=== PATIENT | male | born 2000 | race Caucasian/White ===

== ENCOUNTER 2020-06-25 05:59 | Observation (INO) | payer OTHER, SELFPAY ==
[2020-06-25] VITALS (23 sets, daily range): BP systolic 103–137; BP diastolic 56–109; PULSE 58–91; RESP 11–20; TEMP 36.3–37.3; O2SAT 92–100; BMI 23.0
--- NOTE | 2020-06-25 | PATH_ITS ---
[facility] Accession Number: [id number] . 01 Material submitted: . appendix - APPENDIX . 01 Clinical history: . PAIN RIGHT SIDE ABDOMEN . 02 Diagnosis: Appendix, Appendectomy: Acute suppurative appendicitis with serositis. Negative for dysplasia and malignancy. [facility] 06/29/2020 1248 Local . 02 Electronically signed: . Amrita Arnold MD, Pathologist NPI- [id number] . 01 Gross description: . Received in formalin, labeled appendix, and consists of a 6.0 cm in length by 1.2 cm in diameter vermiform appendix with attached mcmanus-yellow lobulated mesoappendix measuring 5.0 x 2.0 x 1.0 cm in aggregate. The serosa is mcmanus-pink to pink-purple and smooth to ragged with adherent mcmanus-green purulent exudate. Sectioning reveals a mcmanus-pink, focally hemorrhagic mucosa and a lumen measuring 0.6 cm in diameter. Perforation sites are identified within the tips. Credentialing Specialist sections are submitted, to include the en face margin (blue), central cross-sections and bisected tip in cassettes A1-A2. ([id number]) /MRV 06/28/2020 1052 Local . 02 Pathologist provided ICD-10: K35.30 . 02 CPT . 439406 Performed at: 01 [facility] [address], [place], [place] [id number] MD Deepak Gore MD Phone: [phone] Performed at: 02 [facility] [address] [place], [place] [id number] MD Amrita Arnold MD Phone: [phone]
[2020-06-25] MEDS: ONDANSETRON 4 MG/2 ML INJ IV ×3 (06:26→13:23)
[2020-06-25] MEDS: SODIUM CHLORIDE 0.9% 1,000 ML 150 ML IV (06:26)
--- NOTE | 2020-06-25 06:31 | ED_ITS ---
HPI - Abdominal Pain General Chief Complaint: Abdominal Pain Stated Complaint: pain right side abdomen Time Seen by Provider: 06/25/20 06:00 Source: patient Mode of arrival: Ambulatory Limitations: no limitations History of Present Illness HPI narrative: 19-year-old male nonsmoker with noncontributory medical history presents with his mother and a chief complaint of gradually worsening abdominal pain over the course of the day. It is largely in the right lower quadrant and seems to be worse with motion and improves with rest. He has got a decreased appetite and had 1 large episode of emesis. He denies any runny nose, sore throat or cough. He denies any dysuria, frequency or urgency. MD complaint: abdominal pain Onset (ago): hour(s) Pain Consistency: constant Location: RLQ Severity: moderate Quality: cramping and aching Radiation: none Relieving factors: rest Exacerbating factors: movement Associated symptoms: nausea and vomiting Related Data Home Medications Medication Instructions Recorded Confirmed multivitamin 1 cap PO DAILY 08/18/19 04/06/20 Previous Rx's Medication Instructions Recorded escitalopram oxalate 10 mg tablet 10 mg PO DAILY #30 tab 04/06/20 Allergies Allergy/AdvReac Type Severity Reaction Status Date / Time amoxicillin [AMOXICILLIN] Allergy Intermediate RASH Verified 04/06/20 11:02 Sulfa (Sulfonamide Allergy Intermediate ?RASH Verified 04/06/20 11:02 Antibiotics) [SULFA (SULFONAMIDE ANTIBIOTICS)] Review of Systems Constitutional Constitutional: Denies chills, Denies fatigue, Denies fever(s), Denies frequent falls, Denies lethargy and Denies weakness Eyes Eyes: Denies change in vision, Denies eye discharge, Denies irritation and Denies loss of vision ENT Ears, Nose, Mouth, and Throat: Denies change in voice, Denies dizziness, Denies neck pain, Denies sore throat and Denies throat swelling Cardiovascular Cardiovascular: Denies chest pain, Denies irregular heart rhythm, Denies lightheadedness, Denies palpitations, Denies dyspnea, Denies dyspnea on exertion and Denies orthopnea Respiratory Respiratory: Denies cough, Denies dyspnea, Denies dyspnea on exertion and Denies wheezing Gastrointestinal Gastrointestinal: Reports abdominal pain, Denies change in bowel habits, Denies diarrhea, Reports nausea and Reports vomiting Musculoskeletal Musculoskeletal: Denies neck pain and Denies numbness Integumentary/Breasts Skin/Breast: Denies pruritus, Denies erythema, Denies rash and Denies wounds Neurologic Neurologic: Denies behavioral changes, Denies confusion, Denies dizziness, Denies frequent falls, Denies loss of vision, Denies numbness and Denies weakness Psychiatric Psychiatric: Denies anxiety, Denies behavioral changes, Denies confusion, Denies depression, Denies homicidal ideation and Denies suicidal ideation Endocrine Endocrine: Denies fatigue, Denies flushing and Denies palpitations Hematologic/Lymphatic Hematologic/Lymphatic: Denies easy bruising Allergic/Immunologic Allergic/Immunologic: Denies urticaria, Denies throat swelling and Denies wheezing Patient History Social History Smoking Status: Never smoker Smoking Status: Never smoker alcohol intake frequency: a few times a month Substance Use Type: marijuana Exam Narrative Exam Narrative: GENERAL: [19] year old patient appears stated age. Well-no urished, well-developed patient, in mild distress. HEAD: Atraumatic. Normocephalic. EYES: Pupils equal round and reactive. Extraocular motions intact. No scleral icterus. No injection or drainage. ENT: Nose without bleeding, purulent drainage. Throat without erythema, tonsillar hypertrophy or exudate. Airway patent. NECK: Trachea midline. Non tender CARDIOVASCULAR: Regular rate and rhythm without murmurs, gallops, or rubs. RESPIRATORY: Clear to auscultation. Breath sounds equal bilaterally. No wheezes, rales, or rhonchi. GASTROINTESTINAL: Abdomen soft, tender to palpation with no significant rebound, nondistended. Bowel sound present EXTREMITIES: No edema or joint tenderness. BACK: Nontender without deformity or crepitance. No flank tenderness. NEURO: AOx3. SKIN: No rash or erythema of visible areas Initial Vital Signs Initial Vital Signs: Vital Signs Temperature 99.2 F 06/25/20 06:10 Pulse Rate 84 06/25/20 06:10 Respiratory Rate 18 06/25/20 06:10 Blood Pressure 129/80 06/25/20 06:10 Pulse Oximetry 98 06/25/20 06:10 Course Orders Ordered: ED Orders 06/25/20 06:25 Complete Blood Count AUTO DIFF Stat Comprehensive Metabolic Panel Stat Lipase Stat 06/25/20 06:43 CT abdomen pelvis w con Stat 06/25/20 07:20 COVID19 Stat Sodium Chloride (Normal Saline 0.9%) 1,000 mls @ 150 mls/hr IV CONT EDUAR Last Admin: 06/25/20 06:26 Dose: 150 mls/hr Documented by: JENNIFER Levofloxacin (Levaquin) 500 mg in 100 mls @ 100 mls/hr IV NOW ONE Stop: 06/25/20 08:31 Metronidazole (Flagyl) 500 mg in 100 mls @ 100 mls/hr IV NOW ONE Stop: 06/25/20 08:31 Discontinued Medications Ondansetron HCl (Ondansetron 4 Mg/2 Ml Inj) 4 mg IV NOW ONE Stop: 06/25/20 06:19 Last Admin: 06/25/20 06:26 Dose: 4 mg Documented by: JENNIFER Consultations Consultation #1: discussed with general surgery, (Dr. Hernandez) who is happy to accept. Patient to be kept NPO, fluids, ABX, pain meds, antiemetics. Vital Signs Vital signs: Vital Signs - 8 hr 06/25/20 06:10 Temperature 99.2 F Pulse Rate 84 Respiratory Rate 18 Blood Pressure 129/80 Pulse Oximetry 98 MDM - Abdominal Pain Lab Data Result diagrams: 06/25/20 06:25 06/25/20 06:25 Labs: Lab Results 06/25/20 06/25/20 Range/Units 06:25 06:25 WBC 12.8 H (4.5-11.0) X10^3/uL RBC 5.02 (4.5-5.9) X10^6/uL Hgb 14.4 (13.5-17.5) g/dL Hct 42.2 (41-53) % MCV 84.1 (80-100) fL MCH 28.7 (26-34) PG MCHC 34.2 (30-36) % RDW 12.9 (11.6-14.8) % Plt Count 188 (150-400) X10^3/uL Neut % (Auto) 79.5 H (50-75) % Lymph % (Auto) 13.1 L (25-40) % Phillips % (Auto) 6.3 (3-14) % Eos % (Auto) 0.6 L (2-4) % Baso % (Auto) 0.5 (0-2) % Neut # (Auto) 80862 H (3878-3861) /uL Lymph # (Auto) 1700 (3293-3282) /uL Phillips # (Auto) 800 (0-900) /uL Eos # (Auto) 100 (0-450) /uL Baso # (Auto) 100 (0-100) /uL Sodium 135 L (137-145) mmol/L Potassium 3.6 (3.4-5.1) mmol/L Chloride 101 (98-107) mmol/L Carbon Dioxide 28 (22-32) mmol/L BUN 17 (9-20) mg/dL Creatinine 0.80 (0.66-1.25) mg/dL Estimated GFR > 60.0 (>60) mL/min BUN/Creatinine Ratio 21.3 (6-22) Glucose 109 H (70-100) mg/dL Calcium 9.2 (8.4-10.2) mg/dL Total Bilirubin 0.8 (0.2-1.3) mg/dL AST 31 (17-59) IU/L ALT 21 (<50) IU/L Alkaline Phosphatase 49 (38-126) U/L Total Protein 7.6 (6.3-8.2) g/dL Albumin 4.5 (3.5-5.0) g/dL Globulin 3.1 (1.7-4.1) g/dL Albumin/Globulin Ratio 1.5 (1.0-2.8) Lipase 60 (23-300) U/L Imaging Data CT scan - abdomen/pelvis: Radiologist's Impression: Acute appendicitis without evidence of perf oration or abscess. There is an appendicolith noted Discharge Plan Departure Patient Disposition: Admitted as Observation Clinical Impression: Acute appendicitis Qualifiers: Acute appendicitis type: with localized peritonitis Appendicitis gangrene pres ence: without gangrene Appendicitis perforation presence: without perforation Appendicitis abscess presence: without abscess Qualified Code(s): K35.30 - Acute appendicitis with localized peritonitis, without perforation or gangrene
[2020-06-25 06:34] LABS: Add Manual Diff / Slide Review NO; Basophils Absolute Auto 100 /uL (0-100); Basophils Percent Auto 0.5 % (0-2); Eosinophils Absolute Auto 100 /uL (0-450); Eosinophils Percent Auto 0.6 % (2-4); Hematocrit 42.2 % (41-53); Hemoglobin 14.4 g/dL (13.5-17.5); Lymphocytes Absolute Auto 1700 /uL (1100-4500); Lymphocytes Percent Auto 13.1 % (25-40); Mean Corpuscular HGB Conc 34.2 % (30-36); Mean Corpuscular Hemoglobin 28.7 PG (26-34); Mean Corpuscular Volume 84.1 fL (80-100); Monocytes Absolute Auto 800 /uL (0-900); Monocytes Percent Auto 6.3 % (3-14); Neutrophils Absolute Auto 10200 /uL (1500-7000); Neutrophils Percent Auto 79.5 % (50-75); Platelet Count 188 X10^3/uL (150-400); Red Blood Cell Count 5.02 X10^6/uL (4.5-5.9); Red Cell Distribution Width 12.9 % (11.6-14.8); White Blood Cell Count 12.8 X10^3/uL (4.5-11.0)
[2020-06-25 06:43] LABS: Alanine Aminotransferase 21 IU/L (<50); Albumin 4.5 g/dL (3.5-5.0); Albumin Globulin Ratio 1.5 (1.0-2.8); Alkaline Phosphatase 49 U/L (38-126); Aspartate Aminotransferase 31 IU/L (17-59); BUN Creatinine Ratio 21.3 (6-22); Bilirubin Total 0.8 mg/dL (0.2-1.3); Blood Urea Nitrogen 17 mg/dL (9-20); Calcium 9.2 mg/dL (8.4-10.2); Carbon Dioxide 28 mmol/L (22-32); Chloride 101 mmol/L (98-107); Estimated Glomerular Filt Rate > 60.0 mL/min (>60); Globulin 3.1 g/dL (1.7-4.1); Glucose 109 mg/dL (70-100); HEMOLYSIS 22 (0-50); Lipase 60 U/L (23-300); Potassium 3.6 mmol/L (3.4-5.1); Sodium 135 mmol/L (137-145); Total Protein 7.6 g/dL (6.3-8.2)
--- NOTE | 2020-06-25 06:43 | DI.CT.S_ITS ---
PROCEDURE: CT ABDOMEN PELVIS W CON INDICATIONS: Right lower quadrant pain, vomiting, fever, elevated WBC TECHNIQUE: After the administration of intravenous contrast, 5 mm thick sections acquired from the diaphragm to the symphysis. 5 mm coronal and sagittal reformats were acquired. For radiation dose reduction, the following was used: automated exposure control, adjustment of mA and/or kV according to patient size. COMPARISON: None. FINDINGS: Image quality: Excellent. ABDOMEN: Lung bases: Lung bases are clear. Heart size is normal. Solid organs: Liver is normal in size and enhancement. Gallbladder is normal. Biliary system is non dilated. Pancreas enhances normally. Spleen is normal in size and enhancement. No adrenal nodules. Kidneys demonstrate normal size and enhancement, without hydronephrosis. Peritoneum and bowel: Dilated appendix measuring up to 1.1 centimeters maximum luminal diameter. Diffuse distention of the lumen with fluid opacification. Calcified appendicular lith near the base of the appendix. Fluid and inflammatory fat stranding surrounding the appendix along with right lower quadrant lymphadenopathy. Nodes and vessels: No retroperitoneal or mesenteric adenopathy by size criteria. Aorta and inferior vena cava are normal in size. Miscellaneous: No ventral hernias. PELVIS: Genitourinary: Bladder wall thickness is normal. Miscellaneous: No inguinal hernias or adenopathy. Bones: No suspicious bony lesions. No vertebral body compression fractures. IMPRESSION: Acute appendicitis. No perforation or periappendiceal abscess demonstrated. No significant change from preliminary report. Dictated by: Tal Adam M.D. on 06/25/2020 at 7:53 Approved by: Tal Adam M.D. on 06/25/2020 at 7:54
--- NOTE | 2020-06-25 07:53 | P.HP_ITS ---
History of Present Illness History of Present Illness Date Patient Seen: 06/25/20 Time Patient Seen: 07:53 Chief complaint: pain right side abdomen Narrative: This is a 19-year-old young man with acute onset of right lower quadrant pain at about midnight. He complains of nausea and vomiting, and general malaise. He came into the ER and had labs and a CT scan which reveal a white blood cell count of 12, and a thickened dilated appendix without evidence of perforation. He is otherwise healthy, and denies other medical history aside from depression for which he takes Lexapro. ROS: Denies dysuria, chest pain, shortness of breath, Thirteen system review is ot herwise negative other than as mentioned below and in HPI. PE: GENERAL: Well groomed and cooperative. Appears stated age. Answers questions promptly and appropriately. Vital signs noted. HENT: Normocephalic, atraumatic. Hearing intact. EYES: Conjunctiva pink, sclera white, no periorbital swelling. CARDIOVASCULAR: Regular rate. No pedal edema. RESPIRATORY: Non-tachypneic, breathing comfortably on room air. GASTROINTESTINAL: Abdomen soft and non-distended, focal right lower quadrant pain, negative Rovsing sign GENITALURINARY: No flank tenderness. MUSCULOSKELETAL: Equal tone and mass bilaterally. SKIN: Warm, dry, soft, appropriate color for ethnicity. No other lesions, rashes, or wounds. NEURO: Alert and Oriented X 3. No gross sensory deficits, or cognitive issues. PSYCH: Appropriate affect and mood. Patient History Family & Social History Safety & Behavioral: Feels Safe in Current Yes Environment Tobacco & Substance use: Smoking Status Never smoker alcohol intake frequency a few times a month Substance Use Type marijuana Meds Home Medications and Allergies Home Medications Medication Instructions Recorded Confirmed Type multivitamin 1 cap PO DAILY 08/18/19 04/06/20 History escitalopram oxalate 10 mg tablet 10 mg PO DAILY #30 tab 04/06/20 04/06/20 Rx Allergies Allergy/AdvReac Type Severity Reaction Status Date / Time amoxicillin [AMOXICILLIN] Allergy Intermediate RASH Verified 04/06/20 11:02 Sulfa (Sulfonamide Allergy Intermediate ?RASH Verified 04/06/20 11:02 Antibiotics) [SULFA (SULFONAMIDE ANTIBIOTICS)] Exam Vital Signs (past 8 hours): - 06/25/20 06:10 Temperature 99.2 F Pulse Rate 84 Respiratory Rate 18 Blood Pressure 129/80 Pulse Oximetry 98 Oxygen Delivery Method Room Air Objective Imaging CT scan - abdomen: Radiologist's impression: CT scan: Prelim read-acute non perforated appen dicitis, no abscess, no free air, final read pending Labs Result Diagrams: 06/25/20 06:25 06/25/20 06:25 Labs: Laboratory Results - last 24 hr 06/25/20 06/25/20 06:25 06:25 WBC 12.8 H RBC 5.02 Hgb 14.4 Hct 42.2 MCV 84.1 MCH 28.7 MCHC 34.2 RDW 12.9 Plt Count 188 Neut % (Auto) 79.5 H Lymph % (Auto) 13.1 L [place] % (Auto) 6.3 Eos % (Auto) 0.6 L Baso % (Auto) 0.5 Neut # (Auto) 06390 H Lymph # (Auto) 1700 [place] # (Auto) 800 Eos # (Auto) 100 Baso # (Auto) 100 Sodium 135 L Potassium 3.6 Chloride 101 Carbon Dioxide 28 BUN 17 Creatinine 0.80 Estimated GFR > 60.0 BUN/Creatinine Ratio 21.3 Glucose 109 H Calcium 9.2 Total Bilirubin 0.8 AST 31 ALT 21 Alkaline Phosphatase 49 Total Protein 7.6 Albumin 4.5 Globulin 3.1 Albumin/Globulin Ratio 1.5 Lipase 60 Assessment & Plan Assessment and plan (1) Acute appendicitis: Qualifiers: Acute appendicitis type: with localized peritonitis Appendicitis abscess presence: without abscess Appendicitis gangrene presence: without gangrene Appendicitis perforation presence: without perforation Qualified C ode(s): K35.30 - Acute appendicitis with localized peritonitis, without perforation or gangrene Status: Acute (2) Major depressive disorder, single episode, severe without psychotic features: Status: Acute Assessment & Plan narrative: This is a 19-year-old man with acute appendicitis. Had a long discussion with the patient and his mother regarding risks and benefi ts of surgery verses antibiotic treatment alone. He has an appendicolith present visible on his CT scan. This significantly increases the chance that he will have a repeat appendicitis if only treated with antibiotics. Risks and benefits of laparoscopic possible open appendectomy were discussed with the patient his mother including risk of bleeding, infection, damage to nearby structures, need for additional procedures, hernia, postop abscess, need for open surgery, bowel obstruction. The patient and his mother desire to proceed with surgery. Plan: NPO, IV fluids, IV antibiotics Laparoscopic possible open appendectomy by Dr. Heaton this afternoon COVID-19 COVID-19 status: Result pending Result date/Date tested (Pos, Neg/Pending): 06/25/20 Time Spent With Patient Time with patient: 15-24 minutes Quality VTE Deep Vein Thrombosis/Pulmonary Embolism Present on Admission: No
[2020-06-25 07:59] LABS: COVID19 -Nasal RAPID Negative (Negative)
[2020-06-25] MEDS: levoFLOXacin 500 MG/100 ML PIGGYBACK 100 MG IV (08:01)
[2020-06-25] MEDS: metroNIDAZOLE 500 MG/100 ML PIGGYBACK 100 MG IV (09:13)
[2020-06-25] MEDS: HYDROMORPHONE 0.5 MG INJ IV (10:01)
--- NOTE | 2020-06-25 10:11 | PC.NURSE ---
Patient picked up by Florina Turner from OR.
--- NOTE | 2020-06-25 10:23 | SUR.HOLD ---
Patient and mother to holding area. Received report from CLARENCE Reece, emergency room.
[2020-06-25] MEDS: ACETAMINOPHEN 325 MG TABLET 975 MG PO (10:32)
[2020-06-25] MEDS: SCOPOLAMINE 1 PATCH TOP (10:33)
[2020-06-25] MEDS: LACTATED RINGERS 1,000 ML 42 ML IV ×2 (10:35→11:57)
--- NOTE | 2020-06-25 11:16 | SUR.OPER ---
Supine on padded OR bed, head on pillow, arm padded and tucked at side, legs uncrossed, safety belt at thigh, tape over blanket over lower legs .
[2020-06-25] MEDS: BUPIVACAINE 0.5% (PF) VIAL 30 ML INJ (11:23)
--- NOTE | 2020-06-25 12:33 | PM.OP.1 ---
Operative Date/Time/Diagnoses Date of procedure: 06/25/20 Time of procedure: 12:33 Pre-op diagnosis: Acute appendicitis Post-op diagnosis: same Procedure & Clinicians Procedure: Laparoscopic appendectomy Same procedure as scheduled: Yes Indications: 19-year-old male with acute appendicitis and fecalith no abscess on CT abdomen pelvis here for laparoscopic appendectomy Surgeon: Aj Heaton Anesthesia Type: General Operative Notes Findings: Acute non perforated appendicitis Specimen(s): other (Appendix) Estimated Blood Loss (mL): 20 Procedure in detail: Patient was brought to the operating room placed supine on the table. Bilateral lower extremity compression devices were applied. Anesthesia was induced and they intubated with an endotracheal tube. They Flagyl and levofloxacin prior to skin incision. The left arm was tucked and appropriately padded. They were prepped and draped in sterile fashion. Time-out was performed. An infraumbilical incision was made the umbilical stalk was grasped and elevated and incision was made and the abdomen was entered atraumatically. A 12 mm balloon trocar was then placed through the incision and pneumoperitoneum of 14 mm Hg was established. The scope was then inserted and the abdomen inspected, there was no evidence of injury upon entry. Two 5 mm ports were placed under direct visualization, one in the left lower quadrant and the second in the lower midline. A thorough laparoscopic evaluation was performed inspecting all four quadrants. The patient was then tilted right side up. The small bowel was then swept to the upper aspect of the abdomen. The tenie were followed to the base of the cecum where the appendix was identified. It was partially retrocecal and I mobilized the cecum medially in order to completely expose it by incising the white line of Toldt. The appendix was was mobilized from its lateral attachments. It was acutely inflamed but not perforated. The appendix was grasped and a window within the mesentery was made at the base of the appendix using the [place] dissector with care to avoid injuring the cecum. The mesoappendix was then divided using the endo-stapler with a staple length of 2.5 mm-white load. The mesenteric staple line was inspected for hemostasis. The appendix was then amputated flush at the cecum using the endo-stapler blue load. The specimen was retrieved using a endoscopic retrieval bad through the 10 mm infra-umbilical port. The right paracolic gutter and the pouch of Jeff were irrigated The 5 mm ports were then removed under direct visualization. The umbilical fascial incision was closed with 0 Vicryl in a figure-eight fashion. The skin wounds were irrigated and closed with 4-0 Monocryl followed by the application of Dermabond. Sponge instrument count at the end of the operation was correct. The patient tolerated procedure well was extubated and transferred to the postoperative care unit in stable condition. Complications: none Post-operative Condition: stable Disposition: Acute Care
--- NOTE | 2020-06-25 12:43 | SUR.PHASEI ---
Patient remains asleep and unresponsive. Oral airway in place. VSS. Good rise and fall noted of chest wall.
--- NOTE | 2020-06-25 13:42 | PC.ADMIT ---
[address] [facility] Admission Note: The patient,Fede Chao,19 y/o, was given written information regarding hospital policies, unit procedures and contact persons. Patient's smoking status: Never smoker. Vital Signs - 8 hr 06/25/20 06:10 06/25/20 08:14 06/25/20 08:16 Temperature 99.2 F Pulse Rate 84 72 66 Respiratory Rate 18 20 Blood Pressure 129/80 Pulse Oximetry 98 98 97 06/25/20 08:30 06/25/20 09:00 06/25/20 09:17 Temperature 98.4 F Pulse Rate 72 74 Respiratory Rate Blood Pressure Pulse Oximetry 96 96 06/25/20 12:16 06/25/20 12:21 06/25/20 12:26 Temperature 98.1 F Pulse Rate 75 79 79 Respiratory Rate 18 19 16 Blood Pressure 107/56 L 116/65 117/70 Pulse Oximetry 92 92 96 06/25/20 12:36 06/25/20 12:51 06/25/20 12:56 Temperature Pulse Rate 79 84 85 Respiratory Rate 19 11 L 14 Blood Pressure 125/79 105/70 103/60 Pulse Oximetry 95 99 98 06/25/20 13:04 06/25/20 13:15 06/25/20 13:19 Temperature 97.3 F L 97.7 F Pulse Rate 74 78 Respiratory Rate 16 15 Blood Pressure 121/76 121/68 Pulse Oximetry 98 100 97 PATIENT ARRIVED TO RM 218 FROM RECOVERY. DROWSY, OPENS EYES WHEN SPOKEN TO, HAD 175CC'S GREEN EMESIS. GIVEN ZOFRAN. LAP SITES X3 WITH STERI'S ALL CDI. MOTHER AT BEDSIDE DURING ADMISSION ASSESSMENT. PATIENT SLEPT THROUGH. SAT 97% ON RA. VSS. INSTRUCTED TO CALL FOR NEEDS.
[2020-06-25] MEDS: LACTATED RINGERS 1,000 ML 120 ML IV ×2 (13:46→22:44)
[2020-06-25] MEDS: OXYCODONE IR 5 MG TABLET PO (14:09)
[2020-06-25] MEDS: ACETAMINOPHEN 325 MG TABLET 650 MG PO (17:28)
[2020-06-25] MEDS: KETOROLAC 30 MG/ML VIAL IV (17:28)
[2020-06-26] MEDS: KETOROLAC 30 MG/ML VIAL IV ×2 (00:26→06:19)
[2020-06-26 01:00] VITALS: O2SAT 98
[2020-06-26 05:00] VITALS: O2SAT 99
[2020-06-26] MEDS: ACETAMINOPHEN 325 MG TABLET 650 MG PO (06:14)
[2020-06-26 06:20] VITALS: BP 128/80; PULSE 54; RESP 13; TEMP 37.2; O2SAT 99
[2020-06-26] MEDS: LACTATED RINGERS 1,000 ML 120 ML IV (07:32)
[2020-06-26 07:40] VITALS: BP 119/56; PULSE 60; RESP 18; TEMP 36.8; O2SAT 98
[2020-06-26 09:00] VITALS: O2SAT 98
--- NOTE | 2020-06-26 09:22 | CM.DANOTE ---
DCP: Case received, EMR reviewed and met with patient. Mother, Idalmis, was at bedside. Introduced self and role. Was able to obtain information from patient regarding his baseline status prior to hospitalization. DCP assessment completed with information currently available. Patient is a 19 year old male who admitted yesterday morning to the care of the hospitalist/surgical team. PCP: Dr. Gamble. Payer: confirmed: Jase Hodges. Patient came to the hospital via private vehicle secondary to having right lower quadrant pain. Patient was diagnosed with acute appendicitis. He had lap appendectomy yesterday. Met with patient and mom, Idalmis. He was sitting up in bed, pleasant. He is a student at [employer], and independent. He lives with his parents. P: DCP to continue to follow. He should be able to go home when medically stable, possibly today. Marlene Wset RN/[facility]visor [employer]
--- NOTE | 2020-06-26 10:22 | PM.DS.1 ---
History of Present Illness History of Present Illness Date Patient Seen: 06/26/20 Time Patient Seen: 10:23 Chief complaint: pain right side abdomen Narrative: 19y.o male presented with acute appendicits no abscess on CT. Discharge Providers Provider Date of admission: 06/25/20 10:06 Discharge Date: 06/26/20 Primary care physician: Jairo Gamble MD Discharge provider: Aj Heaton MD Summary Hospital Course Discharge Diagnosis: acute appendicits Hospital Course: Patient underwent a laparoscopic appendectomy 06/25/20 which demonstrated acute non perforated appendicits. Unremarkable post operative observation. At discharge pain well controlled, tolerant of a regular diet afebrile. Exam Vital Signs (past 8 hours): - 06/26/20 05:00 06/26/20 06:20 06/26/20 07:40 Temperature 98.9 F 98.2 F Pulse Rate 54 L 60 Respiratory Rate 13 18 Blood Pressure 128/80 119/56 L Pulse Oximetry 99 99 98 06/26/20 09:00 Temperature Pulse Rate Respiratory Rate Blood Pressure Pulse Oximetry 98 Oxygen Delivery Method Room Air Oxygen Flow Rate 0 Narrative Exam Narrative: Gen-Adult male alert and oriented Chest-non labored resp Abd-Soft appropriately tender to palpation RLQ, incisions CDI Objective Labs Result Diagrams: 06/25/20 06:25 06/25/20 06:25 Discharge Plan Discharge Plan Patient Disposition: Home Discharge orders & Medications Prescriptions: New docusate sodium [Colace] 100 mg capsule 100 mg PO BID Qty: 30 RF: 0 oxycodone 5 mg tablet 5 mg PO Q6H PRN (Reason: pain) Qty: 30 RF: 0 acetaminophen [Tylenol] 325 mg capsule 650 mg PO QID PRN (Reason: pain) Qty: 60 RF: 0 Continued multivitamin Capsule 1 cap PO DAILY RF: 0 escitalopram oxalate 10 mg tablet 10 mg PO DAILY Qty: 30 RF: 3 Follow up/Referrals: Jairo Gamble MD [Primary Care Provider] - Aj Heaton MD [Physician] - 2 Weeks Diet/Activity/Treatments Diet: Regular Activity: No lifting >20 lbs x 4 weeks. Walking only for exercise for 4 [address] while taking narcotics. Skin/Wound/Dressing Care Report to your healthcare provider any signs of infection, such as:: chills, fever, increased pain and unusual redness Visit Report/Discharge Packet Instructions: DI for an Appendectomy Discharge Data Primary Care Provider: Jairo Gamble Attending Provider: Aj Heaton VTE Deep Vein Thrombosis/Pulmonary Embolism Present on Admission: No
--- NOTE | 2020-06-26 10:59 | PC.NURSE ---
All discharge teaching done for patient and mom. Patient was educated about medications, ss of infection, activity and follow up appts. Patient and mom verbalized understanding to all discharge teaching. Patient left facility with all belongings and in wheelchair to private car w/ mother. Patient's medications were sent electronically to pharmacy.
--- NOTE | 2020-06-29 18:46 | PC.NURSE ---
Late Entry; NS infusion initiated 06/25 at 06:26, stopped per D/C order at 13:44. Flagyl infusion initiated at 09:13, complete at 10:14. LR infusion initiated at 13:46, d/c by order change entered by [facility] at 16:18.
== END 2020-06-26 11:01 | disposition home or self-care (01) ==
LOC: ED 07:35 → AC 08:02 → ED 09:41 → AC 10:08
PROVIDERS: Admitting Provider Surgery; Emergency Provider Emergency Medicine; Family Provider Pediatrics; PCP Pediatrics; Referring Provider Emergency Medicine; Visit Provider Surgery
PROC: 0DTJ4ZZ Resection of Appendix, Percutaneous Endoscopic Approach (ICD-10-PCS; CPT 44970; principal; 2020-06-25 09:30)
DX: K35.80 Unspecified acute appendicitis (principal); R10.31 Right lower quadrant pain; F32.2 Major depressive disorder, single episode, severe without psychotic features; Z11.59 Encounter for screening for other viral diseases
CPT/HCPCS: 44970; 36415; 74177; 80053; 81003; 83690; 85025; 87635; 96361; 96365; 96367; 96375; 96376; 99219; 99284; G0378; J0330; J1100; J1170; J1885; J1956; J2250; J2405; J2704; J3010; Q9967

== ENCOUNTER → 2025-01-11 09:54 | Outpatient (CLI) | payer OTHER, SELFPAY ==
[2020-06-25 13:19] VITALS: BMI 23.0
[2025-01-11 10:49] LABS: Add Manual Diff / Slide Review NO; Basophils Absolute Auto 0 /uL (0-100); Basophils Percent Auto 0.5 % (0-2); Eosinophils Absolute Auto 100 /uL (0-450); Eosinophils Percent Auto 1.5 % (2-4); Hematocrit 43.8 % (41-53); Lymphocytes Absolute Auto 1600 /uL (1100-4500); Mean Corpuscular HGB Conc 34.1 % (30-36); Mean Corpuscular Hemoglobin 29.4 PG (26-34); Mean Corpuscular Volume 86.2 fL (80-100); Monocytes Absolute Auto 800 /uL (0-900); Monocytes Percent Auto 9.4 % (3-14); Neutrophils Absolute Auto 6000 /uL (1500-7000); Neutrophils Percent Auto 69.6 % (50-75); Platelet Count 223 X10^3/uL (150-400); Red Blood Cell Count 5.08 X10^6/uL (4.5-5.9); Red Cell Distribution Width 12.6 % (11.6-14.8); White Blood Cell Count 8.7 X10^3/uL (4.5-11.0)
[2025-01-11 11:01] LABS: Uric Acid 3.3 mg/dL (3.5-8.5)
[2025-01-11 11:02] LABS: Rheumatoid Factor 10.1 IU/mL (<12.0)
[2025-01-11 11:24] LABS: Erythrocyte Sedimentation Rate 40 MM/HR (0-15)
== END ==
LOC: LAB 09:55
PROVIDERS: Family Provider Pediatrics; PCP Pediatrics; Referring Provider Chiropractor; Visit Provider Chiropractor
DX: M25.50 Pain in unspecified joint (principal)
CPT/HCPCS: 36415; 84550; 85025; 85651; 86038; 86140; 86430